=== PATIENT | female | born 1980 | race Asian ===

== ENCOUNTER → 2018-08-15 16:15 | Outpatient (CLI) | payer OTHER, SELFPAY ==
--- NOTE | 2018-08-15 | DI.US.S_ITS ---
PROCEDURE: US OB >= 14 WEEKS FETUS INDICATIONS: SIZE AND DATES OUTSIDE/PRIOR DATING DATA: Last menstrual period (LMP): Unknown. First dating scan (date and location): 08/15/18. Estimated date of delivery (KHANG) from first dating scan: 01/31/19. TECHNIQUE: Real-time scanning was performed of the fetus, with image documentation and biometric measurements. COMPARISON: None. FINDINGS: General: A single living intrauterine gestation is present. Presentation: Breech Placenta: Placental position is anterior. The low placenta edge appears located approximately 1.1 cm from the cervical os suggestive of a low lying placenta. Amniotic fluid index: Early. Amniotic fluid volume appears within normal limits. heart rate: 157 beats per minute. Maternal cervical canal: Not well-seen. biometrics: Biparietal diameter: 3.2 cm, 16 weeks 1 day Head circumference: 12.0 cm, 16 weeks 0 days Abdominal circumference: 9.7 cm, 15 weeks 5 days Femur length: 1.8 cm, 15 weeks 2 days Estimated gestational age from initial scan: not applicable. Composite gestational age from present scan: 15 weeks 6 days Measurement variability for biometric dating: +/- 7 days from 14 weeks to 15 weeks 6 days gestation, +/- 10 days from 16 weeks to 21 weeks 6 days gestation, +/- 2 weeks from 22 weeks to 27 weeks 6 days gestation, +/- 3 weeks for 28 weeks gestation or later. weight reference: 4500 g or EFW >90/95% is considered macrosomia or large for gestational age. EFW <10% is small for gestational age. EFW 5% or less is considered intra-uterine growth restriction. IMPRESSION: 1. Single living intrauterine with composite gestational age of 15 weeks 6 days corresponding to an estimated delivery date of 01/31/19. 2. Low lying placenta noted likely related to early gestational age. Recommend attention on followup studies. Dictated by: Adiel Martinez M.D. on 08/15/2018 at 21:28 Approved by: Adiel Martinez M.D. on 08/15/2018 at 21:33
== END ==
PROVIDERS: PCP Physician Assistant Medical; Visit Provider Family Medicine
DX: Z36.89 Encounter for other specified antenatal screening (principal); Z3A.15 15 weeks gestation of pregnancy
CPT/HCPCS: 76811

== ENCOUNTER → 2018-09-24 14:54 | Outpatient (CLI) | payer OTHER, SELFPAY ==
--- NOTE | 2018-09-24 | DI.US.S_ITS ---
PROCEDURE: US OB >= 14 WEEKS FETUS INDICATIONS: ANATOMY SCAN OUTSIDE/PRIOR DATING DATA: Last menstrual period (LMP): Unknown. First dating scan (date and location): 08/15/18. Estimated date of delivery (KHANG) from first dating scan: 01/31/19. TECHNIQUE: Real-time scanning was performed of the fetus, with image documentation and biometric measurements. Endovaginal scanning: No COMPARISON: [facility], OB >= 14 WEEKS FETUS, 08/15/2018, 16:25. FINDINGS: General: A single living intrauterine gestation is present. Presentation: Breech. Placenta: Placental position is anterior, with prominent venous jameson along the inferior aspect of the placenta which does extend up to the internal cervical os. Amniotic fluid index: 9.9 cm, normal range is 5-24 cm. heart rate: 155 beats per minute. Maternal cervical canal: 4.0 cm long. Normal lower limit is 2.5 cm. biometrics: Biparietal diameter: 21 weeks 3 days Head circumference: 21 weeks 3 days Abdominal circumference: 22 weeks Femur length: 20 weeks 6 days Estimated gestational age from initial scan: 20 weeks 1 day Composite gestational age from present scan: 21 weeks 3 days Estimated weight and percentile: 426 g; 90 percentile Measurement variability for biometric dating: +/- 7 days from 14 weeks to 15 weeks 6 days gestation, +/- 10 days from 16 weeks to 21 weeks 6 days gestation, +/- 2 weeks from 22 weeks to 27 weeks 6 days gestation, +/- 3 weeks for 28 weeks gestation or later. weight reference: 4500 g or EFW >90/95% is considered macrosomia or large for gestational age. EFW <10% is small for gestational age. EFW 5% or less is considered intra-uterine growth restriction. Anatomic survey: Neuro: Ventricles are non-dilated at less than 10 mm. Cisterna magna is normal at 3-11 mm. Cerebellum is normal in size and morphology. Choroid plexus cyst. Nuchal skin fold: Normal at less than 6 mm between 14-21 weeks gestational age. Face: Nose and lips, facial profile are normal. Spine: No evidence for spina bifida. Heart: 4-chambered heart is present, with normal ventricular outflow tracts. Diaphragm: Diaphragm is intact. Stomach: Left-sided stomach is present. Kidneys: No hydronephrosis. Normal is less than 5 mm in 2nd trimester, less than 7 mm in 3rd trimester. Cord: 3-vessel cord has orthotopic insertion. Bladder: Normal in size. Extremities: All 4 extremities identified. IMPRESSION: 1. Single living IUP redemonstrated and interval growth greater than expected. Followup recommended. 2. Prominent venous lakes along the inferior margin of the placenta which extends to the internal cervical os and marginal previa is present. Followup recommended. 3. Small choroid plexus cyst present: in isolation, no association with aneuploidy. Anatomic survey otherwise is normal. Dictated by: Harpreet Pettit [facility] Interpreted: Gamaliel Cordova MD on 09/24/2018 at 16:27 Approved by: Gamaliel Cordova M.D. on 09/24/2018 at 17:18
== END ==
PROVIDERS: PCP Nurse Practitioner; Visit Provider Family Medicine
DX: Z36.89 Encounter for other specified antenatal screening (principal); Z3A.20 20 weeks gestation of pregnancy
CPT/HCPCS: 76811

== ENCOUNTER → 2018-11-19 14:47 | Outpatient (CLI) | payer OTHER, SELFPAY ==
--- NOTE | 2018-11-19 | DI.US.S_ITS ---
PROCEDURE: US OB LIMITED INDICATIONS: COMPLETE PLACENTA PREVIA NOS OR W/O HEMORRAGE OUTSIDE/PRIOR DATING DATA: Last menstrual period (LMP): Unknown. First dating scan (date and location): 08/15/18. Estimated date of delivery (KHANG) from first dating scan: 01/31/19. TECHNIQUE: Real-time scanning was performed of the fetus, with image documentation and biometric measurements. COMPARISON: [facility], OB >= 14 WEEKS FETUS, 08/15/2018, 16:25. [facility], OB >= 14 WEEKS FETUS, 09/24/2018, 15:25. FINDINGS: General: A single living intrauterine gestation is present. Presentation: Transverse with head on maternal right Placenta: Placental position is anterior, without previa. Amniotic fluid index: 19.7 cm, normal range is 5-24 cm. heart rate: 158 beats per minute. Maternal cervical canal: 3.9 cm long. Normal lower limit is 2.5 cm. Estimated gestational age from initial scan: 29 weeks 4 days IMPRESSION: 1. Single living intrauterine redemonstrated. 2. No evidence of placenta previa on the current study. Dictated by: Adiel Martinez M.D. on 11/19/2018 at 16:51 Approved by: Adiel Martinez M.D. on 11/19/2018 at 16:56
== END ==
PROVIDERS: PCP Family Medicine; Visit Provider Family Medicine
DX: O44.02 Complete placenta previa NOS or without hemorrhage, second trimester (principal); Z3A.29 29 weeks gestation of pregnancy
CPT/HCPCS: 76815

== ENCOUNTER 2018-11-27 07:35 | Emergency (ER) | payer OTHER, SELFPAY ==
[2018-11-27 07:44] VITALS: BP 109/62; PULSE 87; RESP 18; TEMP 36.9; O2SAT 98; BMI 28.1
[2018-11-27] MEDS: SODIUM CHLORIDE 0.9% 1,000 ML 1000 ML IV (08:13)
[2018-11-27] MEDS: ACETAMINOPHEN 325 MG TABLET 650 MG PO (08:14)
--- NOTE | 2018-11-27 08:16 | ED_ITS ---
HPI - Dizziness General Chief Complaint: Syncope Stated Complaint: Dizziness Time Seen by Provider: 11/27/18 07:51 Source: patient and family Mode of arrival: ambulatory Limitations: no limitations History of Present Illness HPI Narrative: The patient is brought to the emergency department via EMS after having a near syncopal episode at work today. Patient is 28 weeks . 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 Patient states that she has been having episodes of lightheadedness throughout her , and usually has to sit and the episode passed. The patient's h usband states that the patient was just recently diagnosed with gestational diabetes, and they have been working on getting her sugars down. He states that since they have been working on the sugars, she has not had the lightheaded episodes so much. Patient states that this felt like previous episodes, but was more severe. Patient states that she began to feel dizzy while standing up, and went to sit down in a chair. She states everything went black, but that she could still hear what was going on around her. Patient was still feeling quite dizzy sitting in the chair, so she got down on the floor and laid down. The patient states she never fully lost consciousness. Her boss called EMS, who came and picked her up. Patient states she is feeling quite a bit better now. She was given some oral glucose EN route. She states she has been drinking plenty of fluids. She has a mild headache She denies any dysuria, fevers, vomiting, diarrhea, or other recent illness. She has not been leaking fluid or experiencing vaginal bleeding. The has been going fairly well. Patient has been able to feel the baby moving. Related Data Home Medications Medication Instructions Recorded Confirmed naproxen sodium [Aleve] #0 09/17/17 Previous Rx's Medication Instructions Recorded albuterol sulfate [Ventolin HFA] 2 puff INH QID #1 ea 09/17/17 Allergies Allergy/AdvReac Type Severity Reaction Status Date / Time aspirin Allergy Verified 11/27/18 09:15 ASPIRIN Allergy Unknown Uncoded 11/27/18 09:15 Review of Systems Constitutional Denies chills, Denies fever(s), Reports headache(s), Denies lethargy and Denies weakness Eyes Denies change in vision, Denies eye discharge, Denies irritation and Denies loss of vision ENT Ears, Nose, Mouth, and Throat: Denies change in voice, Reports headache(s), Denies neck pain and Denies sore throat Cardiovascular Denies chest pain, Denies irregular heart rhythm, Reports lightheadedness, Denies palpitations, Denies dyspnea, Denies dyspnea on exertion and Denies ort hopnea Respiratory Denies cough, Denies dyspnea, Denies dyspnea on exertion and Denies wheezing Gastrointestinal Gastrointestinal: Denies abdominal pain, Denies change in bowel habits, Denies diarrhea, Denies nausea and Denies vomiting Genitourinary Denies hematuria, Denies flank pain, Denies urinary incontinence and Denies urinary urgency Musculoskeletal Denies neck pain Integumentary/Breasts Denies pruritus, Denies erythema, Denies rash and Denies wounds Neurologic Denies confusion, Reports headache(s), Denies loss of vision and Denies weakness Psychiatric Denies anxiety, Denies confusion, Denies depression, Denies homicidal ideation and Denies suicidal ideation Endocrine Denies palpitations Hematologic/Lymphatic Denies easy bruising Allergic/Immunologic Denies wheezing [facility] Medical History (Updated 11/27/18 @ 09:43 by Louise Peterson MD) Gestational diabetes (Acute) Social History (System 11/27/18 @ 09:15 by Henrietta Bergman) Smoking Status: Never smoker Social History (System 11/27/18 @ 09:15 by Henrietta Bergman) Smoking Status: Never smoker Exam Initial Vital Signs Initial Vital Signs: Vital Signs Temperature 98.4 F 11/27/18 07:44 Pulse Rate 87 11/27/18 07:44 Respiratory Rate 18 11/27/18 07:44 Blood Pressure 109/62 11/27/18 07:44 Pulse Oximetry 98 11/27/18 07:44 Const General: cooperative and well developed Nutritional Appearance: well nourished Orientation: alert, awake, oriented x3 and not confused [facility] Head: normocephalic and atraumatic Ears: external ears normal Nose: external nose normal and No nasal discharge Face and sinus: face symmetric and No dry mucous membranes Mouth: oral mucosae normal and moist mucous membranes Teeth and gingiva: dentition normal Eyes General: appearance normal, both eyes and all related structures Eyelids: eyelids normal Conjunctivae: conjunctivae normal Sclera: sclerae normal Pupils: PERRL EOM: EOM intact bilaterally Neck Neck: normal visual inspection, trachea midline, No lymphadenopathy, No midline deformity and No JVD Lymphatic: No lymphedema Chest Chest: normal inspection of the chest Resp Effort & Inspection: normal respiratory effort, able to speak in complete sentences, no respiratory distress and no use of accessory muscles Auscultation: clear to auscultation bilaterally, no rales, no rhonchi and no w heezes Cardio Rate: regular rate Rhythm: regular rhythm Heart Sounds: no click, no gallops, no murmurs and no rubs Pulses: normal peripheral pulses GI Palpation: soft, no hepatosplenomegaly, No guarding, No pulsatile mass and No tender Auscultation: normal bowel sounds Other: Patient has a gravid, nontender abdomen, that displays an appropriate degree of distention for gestational age. Back/Spine/Pelvis Back: No CVA tenderness Cervical Spine: cervical ROM normal and No pain with cervical ROM Thoracic/Lumbar Spine: thoracic and lumbar spine normal to inspection Skin General: no rashes or lesions noted, No jaundice and No petechiae Neuro General: alert, oriented x3, gait normal and no focal motor deficits Speech: speech normal Extrem General: full ROM, no clubbing, cyanosis or edema, no pedal edema and no calf te nderness Psych Appearance: well kempt Mental Status: mental status grossly normal Attitude: cooperative Thought Content: normal and suicidality Judgment: judgment good Course Course Narrative: Patient overall was feeling better looked fairly good emergency department. She was given a L of 0.9 normal saline, and a BMP was performed in consideration the patient's gestational diabetes. Blood glucose on BMP was found to be 112. The remainder of the BMP was also unremarkable. Patient was found to be feeling much better, and I felt she was stable for discharge home. She has an appointment with her primary doctor, who is also handling her OB care, tomorrow. will drive her home. I have given her a note for work stating that she needs to sit down to do her work. We have discussed the usual indications for return, as well as symptomatic management at home. Orders Ordered: Discontinued Medications Acetaminophen (Tylenol) 650 mg PO NOW ONE Stop: 11/27/18 08:13 Last Admin: 11/27/18 08:14 Dose: 650 mg Sodium Chloride (Normal Saline 0.9%) 1,000 mls @ 1,000 mls/hr IV BOLUS ONE Stop: 11/27/18 09:11 Last Infusion: 11/27/18 09:05 Dose: 0 mls/hr Admin: 11/27/18 08:13 Dose: 1,000 mls/hr Sodium Chloride (Normal Saline 0.9%) 1,000 mls @ 1,000 mls/hr IV BOLUS ONE Stop: 11/27/18 09:13 Last Admin: 11/27/18 08:17 Dose: Not Given Vital Signs - 8 hr 11/27/18 07:44 Temperature 98.4 F Pulse Rate 87 Respiratory Rate 18 Blood Pressure 109/62 Pulse Oximetry 98 MDM - Dizziness Medical Records Attestation: I reviewed the patient's medical records. Lab Data Attestation: I reviewed the patient's lab results. Result diagrams: 11/27/18 08:30 Lab Results 11/27/18 Range/Units 08:30 Sodium 134 L (137-145) mmol/L Potassium 3.7 (3.4-5.1) mmol/L Chloride 104 (98-107) mmol/L Carbon Dioxide 25 (22-32) mmol/L BUN 8 (7-17) mg/dL Creatinine 0.50 L (0.52-1.04) mg/dL Estimated GFR > 60.0 (>60) mL/min BUN/Creatinine Ratio 16.0 (6-22) Glucose 112 H (70-100) mg/dL Calcium 8.8 (8.4-10.2) mg/dL Point of Care Testing Glucose POC 170 Discharge Plan Departure Patient Disposition: Home Clinical Impression: Postural dizziness with near syncope Discharge Date/Time: 11/27/18 09:51 Interventions: ED Discharge Assessment Last Done: 11/27/18 09:50 Instructions: DI for Syncope in Adults (Fainting) Activity Restrictions/Additional Instructions: Your labs look good. Your blood glucose is just slightly elevated, at 112. Please be sure to drink plenty of fluids and get rest. Follow up with Dr. Demarco tomorrow, as planned. Prescriptions: No Action naproxen sodium [Aleve] 220 MG capsule Qty: 0 RF: 0 albuterol sulfate [Ventolin HFA] 90 MCG/PUFF HFA aerosol inhaler 2 puff INH QID Qty: 1 RF: 0 Stand Alone Forms: Work Release Note
[2018-11-27 08:58] LABS: Blood Urea Nitrogen 8 mg/dL (7-17); Calcium 8.8 mg/dL (8.4-10.2); Carbon Dioxide 25 mmol/L (22-32); Chloride 104 mmol/L (98-107); Estimated Glomerular Filt Rate > 60.0 mL/min (>60); Glucose 112 mg/dL (70-100); HEMOLYSIS < 15 (0-50); Potassium 3.7 mmol/L (3.4-5.1); Sodium 134 mmol/L (137-145)
[2018-11-27 09:50] VITALS: BP 104/63; PULSE 82; RESP 16; O2SAT 100
== END 2018-11-27 09:51 | disposition home or self-care (01) ==
PROVIDERS: Emergency Provider Emergency Medicine; Family Provider Family Medicine
DX: R42 Dizziness and giddiness (principal); R55 Syncope and collapse
CPT/HCPCS: 36415; 80048; 82962; 99283

== ENCOUNTER 2018-12-15 16:14 | Outpatient (CLI) | payer OTHER, SELFPAY | END 2018-12-15 16:55 | disposition home or self-care (01) | LOC: LABOR 16:54 → OB 12-16 15:36 | PROVIDERS: Family Provider Family Medicine; PCP Family Medicine; Visit Provider Family Medicine | DX: O24.419 Gestational diabetes mellitus in pregnancy, unspecified control (principal); Z3A.33 33 weeks gestation of pregnancy | CPT/HCPCS: 59025; G0378; G0379 ==

== ENCOUNTER → 2018-12-19 15:00 | Outpatient (CLI) | payer OTHER, SELFPAY ==
--- NOTE | 2018-12-19 | DI.US.S_ITS ---
PROCEDURE: US OB LIMITED INDICATIONS: SIZE GREATER THAN DATES OUTSIDE/PRIOR DATING DATA: Last menstrual period (LMP): Unknown. LMP-based estimated date of delivery (KHANG): Unknown. First dating scan (date and location): 08/15/18. Estimated date of delivery (KHANG) from first dating scan: 01/31/19. TECHNIQUE: Real-time scanning was performed of the fetus, with image documentation and biometric measurements. Endovaginal scanning: Not performed COMPARISON: [facility], OB LIMITED, 11/19/2018, 15:25 FINDINGS: General: A single living intrauterine gestation is present. Presentation: Vertex Placenta: Placental position is anterior, without previa. Amniotic fluid index: 13.8 cm, normal range is 5-24 cm. heart rate: 144 beats per minute. Maternal cervical canal: Not measured. biometrics: Biparietal diameter: 8.9 cm, 35 week 5 days Head circumference: 31.8 cm, 35 week 5 days Abdominal circumference: 30.6 cm, 34 week 4 days Femur length: 6.5 cm, 33 weeks 4 days Estimated gestational age from initial scan: 33 week 6 days Composite gestational age from present scan: 34 weeks 4 days Estimated weight and percentile: 2453 g, 64% Measurement variability for biometric dating: +/- 7 days from 14 weeks to 15 weeks 6 days gestation, +/- 10 days from 16 weeks to 21 weeks 6 days gestation, +/- 2 weeks from 22 weeks to 27 weeks 6 days gestation, +/- 3 weeks for 28 weeks gestation or later. weight reference: 4500 g or EFW >90/95% is considered macrosomia or large for gestational age. EFW <10% is small for gestational age. EFW 5% or less is considered intra-uterine growth restriction. Other: Not applicable. IMPRESSION: Single live intrauterine . heart rate is 144 beats per minute. Estimated weight is 2453 g, and is at 64%. Dictated by: Gamaliel Cordova M.D. on 12/19/2018 at 16:34 Approved by: Gamaliel Cordova M.D. on 12/19/2018 at 16:38
== END ==
PROVIDERS: Family Provider Family Medicine; PCP Family Medicine; Visit Provider Family Medicine
DX: Z36.88 Encounter for antenatal screening for fetal macrosomia (principal); Z3A.34 34 weeks gestation of pregnancy
CPT/HCPCS: 76815

== ENCOUNTER 2018-12-19 15:53 | Outpatient (CLI) | payer OTHER, SELFPAY | END 2018-12-19 16:30 | disposition home or self-care (01) | LOC: LABOR 15:59 → OB 12-23 14:34 | PROVIDERS: Family Provider Family Medicine; PCP Family Medicine; Visit Provider Family Medicine | DX: O24.419 Gestational diabetes mellitus in pregnancy, unspecified control (principal); Z3A.33 33 weeks gestation of pregnancy | CPT/HCPCS: 59025; 76815; G0378; G0379 ==

== ENCOUNTER 2018-12-22 15:14 | Outpatient (CLI) | payer OTHER, SELFPAY | END 2018-12-22 16:00 | disposition home or self-care (01) | LOC: LABOR 15:43 → OB 12-23 14:36 | PROVIDERS: Family Provider Family Medicine; PCP Family Medicine; Visit Provider Family Medicine | DX: O24.419 Gestational diabetes mellitus in pregnancy, unspecified control (principal); Z3A.34 34 weeks gestation of pregnancy | CPT/HCPCS: 59025; G0378; G0379 ==

== ENCOUNTER 2018-12-25 15:02 | Outpatient (CLI) | payer OTHER, SELFPAY | END 2018-12-25 16:22 | disposition home or self-care (01) | LOC: LABOR 15:37 → OB 12-29 14:53 | PROVIDERS: Family Provider Family Medicine; PCP Family Medicine; Visit Provider Family Medicine | DX: O24.414 Gestational diabetes mellitus in pregnancy, insulin controlled (principal); Z3A.35 35 weeks gestation of pregnancy | CPT/HCPCS: 59025; G0378; G0379 ==

== ENCOUNTER → 2018-12-30 13:12 | Outpatient (ROUT) | payer OTHER, SELFPAY | PROVIDERS: Family Provider Family Medicine; PCP Family Medicine; Visit Provider Family Medicine | DX: Z34.80 Encounter for supervision of other normal pregnancy, unspecified trimester (principal) | CPT/HCPCS: 87081 ==

== ENCOUNTER 2018-12-30 14:56 | Outpatient (CLI) | payer OTHER, SELFPAY | END 2018-12-30 16:25 | disposition home or self-care (01) | LOC: LABOR 15:49 → OB 01-05 16:24 | PROVIDERS: PCP Family Medicine; Visit Provider Family Medicine | DX: O24.913 Unspecified diabetes mellitus in pregnancy, third trimester (principal); Z3A.35 35 weeks gestation of pregnancy | CPT/HCPCS: 59025; 87081; G0378; G0379 ==

== ENCOUNTER 2019-01-01 09:48 | Outpatient (CLI) | payer OTHER, SELFPAY | END 2019-01-01 10:31 | disposition home or self-care (01) | LOC: OB 01-05 16:24 | PROVIDERS: PCP Family Medicine; Visit Provider Family Medicine | DX: O24.419 Gestational diabetes mellitus in pregnancy, unspecified control (principal); Z3A.35 35 weeks gestation of pregnancy | CPT/HCPCS: 59025; G0378; G0379 ==

== ENCOUNTER 2019-01-06 16:00 | Outpatient (CLI) | payer OTHER, SELFPAY | END 2019-01-06 16:29 | disposition home or self-care (01) | LOC: LABOR 16:28 → OB 01-07 12:45 | PROVIDERS: PCP Family Medicine; Visit Provider Family Medicine | DX: O24.419 Gestational diabetes mellitus in pregnancy, unspecified control (principal); Z3A.36 36 weeks gestation of pregnancy | CPT/HCPCS: 59025; G0378; G0379 ==

== ENCOUNTER 2019-01-08 10:04 | Outpatient (CLI) | payer OTHER, SELFPAY | END 2019-01-08 10:32 | disposition home or self-care (01) | LOC: OB 16:51 | PROVIDERS: PCP Family Medicine; Visit Provider Family Medicine | DX: O24.419 Gestational diabetes mellitus in pregnancy, unspecified control (principal); Z3A.36 36 weeks gestation of pregnancy | CPT/HCPCS: 59025; G0378; G0379 ==

== ENCOUNTER 2019-01-13 13:50 | Outpatient (CLI) | payer OTHER, MEDICAID, SELFPAY | END 2019-01-13 15:35 | disposition home or self-care (01) | LOC: LABOR 15:00 → OB 01-14 13:37 | PROVIDERS: PCP Family Medicine; Visit Provider Family Medicine | DX: O24.419 Gestational diabetes mellitus in pregnancy, unspecified control (principal); Z3A.37 37 weeks gestation of pregnancy | CPT/HCPCS: 59025; G0378; G0379 ==

== ENCOUNTER → 2019-01-15 08:04 | Outpatient (CLI) | payer OTHER, MEDICAID, SELFPAY ==
--- NOTE | 2019-01-15 | DI.US.S_ITS ---
PROCEDURE: OB FOLLOW UP INDICATIONS: SIZE GREATER THAN DATES, GESTATIONAL DIABETES OUTSIDE/PRIOR DATING DATA: Last menstrual period (LMP): Unknown. LMP-based estimated date of delivery (KHANG): Unknown. First dating scan (date and location): 08/15/18. Estimated date of delivery (KHANG) from first dating scan: 01/31/19. TECHNIQUE: Real-time scanning was performed of the fetus, with image documentation and biometric measurements. Endovaginal scanning: Not performed COMPARISON: [facility], OB LIMITED, 12/19/2018, 15:29. Located within [facility] OB LIMITED, 11/19/2018, 15:25. Located within [facility] OB >= 14 WEEKS FETUS, 09/24/2018, 15:25. Located within [facility] OB >= 14 WEEKS FETUS, 08/15/2018, 16:25. FINDINGS: General: A single living intrauterine gestation is present. Presentation: Vertex. Placenta: Placental position is anterior, without previa. Amniotic fluid index: 10.5 cm, normal range is 5-24 cm. heart rate: 144 beats per minute. Maternal cervical canal: 3.4 cm long. Normal lower limit is 2.5 cm. biometrics: Biparietal diameter: 9.5 cm, 38 weeks 4 days Head circumference: 34.4 cm, 39 weeks 5 days Abdominal circumference: 36.4 cm, 40 weeks 2 days Femur length: 7.5 cm, 38 weeks 2 days Estimated gestational age from initial scan: 37 weeks 5 days Composite gestational age from present scan: 39 weeks 2 days Estimated weight and percentile: 3832 g, 95th percentile Measurement variability for biometric dating: +/- 7 days from 14 weeks to 15 weeks 6 days gestation, +/- 10 days from 16 weeks to 21 weeks 6 days gestation, +/- 2 weeks from 22 weeks to 27 weeks 6 days gestation, +/- 3 weeks for 28 weeks gestation or later. weight reference: 4500 g or EFW >90/95% is considered macrosomia or large for gestational age. EFW <10% is small for gestational age. EFW 5% or less is considered intra-uterine growth restriction. Other: Not applicable. IMPRESSION: Single living intrauterine fetus in vertex presentation, at the 95th percentile for expected weight as above, suggestive of macrosomia (previously 64th percentile). Normal DEANGELO. Dictated by: Abdoulaye Torres M.D. on 01/15/2019 at 16:47 Approved by: Abdoulaye Torres M.D. on 01/15/2019 at 16:50
== END ==
PROVIDERS: PCP Family Medicine; Visit Provider Family Medicine
DX: O36.63X0 Maternal care for excessive fetal growth, third trimester, not applicable or unspecified (principal); O24.419 Gestational diabetes mellitus in pregnancy, unspecified control; Z3A.39 39 weeks gestation of pregnancy
CPT/HCPCS: 59025; 76816

== ENCOUNTER 2019-01-15 14:37 | Outpatient (CLI) | payer OTHER, MEDICAID, SELFPAY ==
--- NOTE | 2019-01-15 15:28 | PM.OBTRLD ---
Visit Information Visit Information Date of evaluation: 01/15/19 Primary OB Provider: Adali Demarco On-call OB Provider: Kriss Krishnamurthy Reason for Evaluation: Yes non-stress test non-stress test reason: diabetes [facility] Medical History (Updated 12/12/18 @ 00:00 by ) Gestational diabetes (Acute) Social History (System 11/27/18 @ 09:15 by Henrietta Bergman) Smoking Status: Never smoker Social History (System 11/27/18 @ 09:15 by Henrietta Bergman) Smoking Status: Never smoker Exam Vital Signs (past 8 hours): Blood pressure 104/58, temperature of 36.4?, pulse of 85 Evaluation Evaluation Baseline heart rate: 130 Variability: Moderate (11-25) monitor accelerations: Present monitor decelerations: Absent Diagnosis, Plan/Disposition Final Diagnosis (1) Gestational diabetes: Current Visit: No Status: Acute Plan/Disposition Plan: Reactive nonstress tests continue to follow up with OB provider OB Disposition: home
== END 2019-01-15 15:28 | disposition home or self-care (01) ==
LOC: LABOR 14:54 → OB 16:41
PROVIDERS: PCP Family Medicine; Visit Provider Family Medicine
DX: O24.419 Gestational diabetes mellitus in pregnancy, unspecified control (principal)
CPT/HCPCS: 59025; G0378; G0379

== ENCOUNTER 2019-01-20 14:01 | Outpatient (CLI) | payer OTHER, MEDICAID, SELFPAY | END 2019-01-20 14:45 | disposition home or self-care (01) | LOC: LABOR 14:31 → OB 01-21 15:53 | PROVIDERS: PCP Family Medicine; Visit Provider Family Medicine | DX: O24.419 Gestational diabetes mellitus in pregnancy, unspecified control (principal); Z3A.38 38 weeks gestation of pregnancy | CPT/HCPCS: 59025; G0378; G0379 ==

== ENCOUNTER 2019-01-22 16:04 | Outpatient (CLI) | payer OTHER, MEDICAID, SELFPAY | END 2019-01-22 16:45 | disposition home or self-care (01) | LOC: LABOR 16:40 → OB 01-27 10:25 | PROVIDERS: PCP Family Medicine; Visit Provider Family Medicine | DX: O24.419 Gestational diabetes mellitus in pregnancy, unspecified control (principal); Z3A.38 38 weeks gestation of pregnancy | CPT/HCPCS: 59025; G0378; G0379 ==

== ENCOUNTER 2019-01-26 06:31 | Inpatient (IN) | payer OTHER, MEDICAID, SELFPAY ==
[2019-01-26] VITALS (15 sets, daily range): BP systolic 76–112; BP diastolic 54–69; PULSE 62–93; RESP 8–17; TEMP 36.2–37.2; O2SAT 94–99
--- NOTE | 2019-01-26 | PATH_ITS ---
[facility] Accession Number: [id number] . 01 Material submitted: . fallopian tube - SEGMENTS OF BILATERAL FALLOPIAN TUBES . 01 Clinical history: . , TUBAL LIGATION . 02 Diagnosis: Segments of Bilateral Fallopian Tubes, Bilateral Tubal Ligation: Two segments of fallopian tube. No evidence of malignancy. MRV/01/28/2019 . 02 Electronically signed: . Armin Champion MD, PhD, Pathologist NPI- [id number] . 01 Gross description: . Received one formalin-filled container labeled with the patient's name and labeled segments of bilateral fallopian tubes. The specimen consists of two coffey-robin, cylindrical-shaped portions of tissue. The first measures 0.8 x 0.5 x 0.5 cm. The specimen is inked blue, bisected, and entirely submitted in cassette A1. The second piece measures 0.8 x 0.5 x 0.5 cm. The specimen is inked blue, bisected, and entirely submitted in cassette A2. ([id number]) /FRR . 02 Microscopic: . Complete cross-sections of fallopian tube are seen from each of the two tissue segments received. . 02 Pathologist provided ICD-10: Z30.2 . 02 CPT . 211737 Performed at: 01 [facility] [address], [place], [place] [id number] MD Adiel Lynn MD Phone: [phone] Performed at: 02 [facility] [place] [address] [place], [place] [id number] MD Delfina Hernandez MD Phone: [phone]
[2019-01-26] MEDS: LACTATED RINGERS 1,000 ML 100 ML IV ×2 (07:30→15:50)
--- NOTE | 2019-01-26 07:55 | PM.OBHP.1 ---
OB HPI Date/Time Date of admission: 01/26/19 Date Patient Seen: 01/26/19 Time Patient Seen: 07:55 History of Present Condition Chief complaint: ,Tubal Ligation : 2 Para: 1 Estimated Date of Delivery: 01/30/19 Estimated Gestational Age (weeks): Thirty Narrative: Kathy Pierre is a 38 year old female with EDC of 8 January 31, 2019 placing her at 39+ weeks gestational age. With patient has history of greater than 4500 g and gestational diabetes with previous labor and 2 lb patient requesting section and permanent sterilization. has been complicated by gestational diabetes and LGA . No other issue or problem and STs have been excellent sugars have been well controlled with hemoglobin oral metformin. No other changes. Past gestational history 07/05/1998 at home 2 lb female Past medical history is negative. Past surgical history negative. Indications Operative indications ( section): elective Other reason(s) for admission: Patient admitted for section for LGA and gestational diabetes History of Present care: good care Dating criteria: LMP confirmed by 1st trimester US Ultrasounds: normal mid trimester US Obstetrical complications: gestational diabetes Preadmission Labs Blood type: O (+) positive -: Antibody screen: negative, GBS status: negative, HBsAG: negative, HIV: negative, HSV 1: negative, HSV 2: negative and RPR/VDLR: negative -: Chlamydia screen: not detected and Gonorrhea screen: not detected -: Rubella: immune HCT: 31 HCAB: negative PAP: Normal Quad screen: Normal Narrative: Abnormal 1 hour glucose test. [facility] Medical History (Updated 12/12/18 @ 00:00 by ) Gestational diabetes (Acute) Social History (System 11/27/18 @ 09:15 by HenriettaJongla) Smoking Status: Never smoker Social History (System 11/27/18 @ 09:15 by HenriettaJongla) Smoking Status: Never smoker Meds Allergies Allergy/AdvReac Type Severity Reaction Status Date / Time aspirin Allergy Verified 11/27/18 09:15 ASPIRIN Allergy Unknown Uncoded 11/27/18 09:15 Review of Systems Review of Systems All systems reviewed & are unremarkable except as noted in HPI and below Exam Vital Signs (past 8 hours): Alert female no acute distress Lungs are clear. Heart regular rate and rhythm. Abdomen is vertex 9+ lb infant estimated weight. Extremities without cyanosis clubbing edema. Neurologic exam normal reflexes Assessment and Plan Assessment and Plan Assessment and Plan narrative: Thirty-nine 2. Intrauterine term with history of gestational diabetes and macrosomic infant desire for sterilization here for elective section. We have added long discussion with Dr. Demarco and her and myself this morning about the section she is requesting that due to large . Will check sugar this morning. Otherwise routine preparation for section. Questions answered. Consents min sign.
--- NOTE | 2019-01-26 08:01 | P.HPOB_ITS ---
OB HPI Date/Time Date of admission: 01/26/19 Date Patient Seen: 01/26/19 Time Patient Seen: 07:55 History of Present Condition Chief complaint: ,Tubal Ligation : 2 Para: 1 Estimated Date of Delivery: 01/30/19 Estimated Gestational Age (weeks): Thirty Narrative: Kathy Pierre is a 38 year old female with EDC of 8 January 31, 2019 placing her at 39+ weeks gestational age. With patient has history of greater than 4500 g and gestational diabetes with previous labor and 2 lb patient requesting section and permanent sterilization. has been complicated by gestational diabetes and LGA . No other issue or problem and STs have been excellent sugars have been well controlled with hemoglobin oral metformin. No other changes. Past gestational history 07/05/1998 at home 2 lb female Past medical history is negative. Past surgical history negative. Indications Operative indications ( section): elective Other reason(s) for admission: Patient admitted for section for LGA and gestational diabetes History of Present care: good care Dating criteria: LMP confirmed by 1st trimester US Ultrasounds: normal mid trimester US Obstetrical complications: gestational diabetes Preadmission Labs Blood type: O (+) positive -: Antibody screen: negative, GBS status: negative, HBsAG: negative, HIV: negative, HSV 1: negative, HSV 2: negative and RPR/VDLR: negative -: Chlamydia screen: not detected and Gonorrhea screen: not detected -: Rubella: immune HCT: 31 HCAB: negative PAP: Normal Quad screen: Normal Narrative: Abnormal 1 hour glucose test. [facility] Medical History (Updated 12/12/18 @ 00:00 by ) Gestational diabetes (Acute) Social History (System 11/27/18 @ 09:15 by HenriettaClew) Smoking Status: Never smoker Social History (System 11/27/18 @ 09:15 by HenriettaClew) Smoking Status: Never smoker Meds Allergies Allergy/AdvReac Type Severity Reaction Status Date / Time aspirin Allergy Verified 11/27/18 09:15 ASPIRIN Allergy Unknown Uncoded 11/27/18 09:15 Review of Systems Review of Systems All systems reviewed & are unremarkable except as noted in HPI and below Exam Vital Signs (past 8 hours): Alert female no acute distress Lungs are clear. Heart regular rate and rhythm. Abdomen is vertex 9+ lb infant estimated weight. Extremities without cyanosis clubbing edema. Neurologic exam normal reflexes Assessment and Plan Assessment and Plan Assessment and Plan narrative: Thirty-nine 2. Intrauterine term with history of gestational diabetes and macrosomic infant desire for sterilization here for elective section. We have added long discussion with Dr. Demarco and her and myself this morning about the section she is requesting that due to large . Will check sugar this morning. Otherwise routine preparation for section. Questions answered. Consents min sign.
[2019-01-26 08:16] LABS: Add Manual Diff / Slide Review NO; Basophils Absolute Auto 0 /uL (0-100); Basophils Percent Auto 0.4 % (0-2); Eosinophils Absolute Auto 200 /uL (0-450); Eosinophils Percent Auto 2.5 % (2-4); Lymphocytes Absolute Auto 1500 /uL (1100-4500); Lymphocytes Percent Auto 18.2 % (25-40); Mean Corpuscular HGB Conc 34.3 % (30-36); Mean Corpuscular Hemoglobin 29.2 PG (26-34); Mean Corpuscular Volume 85.2 fL (80-100); Monocytes Absolute Auto 600 /uL (0-900); Monocytes Percent Auto 7.4 % (3-14); Neutrophils Absolute Auto 5700 /uL (1500-7000); Neutrophils Percent Auto 71.5 % (50-75); Platelet Count 202 X10^3/uL (150-400); Red Blood Cell Count 4.11 X10^6/uL (4.0-5.2)
[2019-01-26] MEDS: CEFOTETAN 2 GM/50 ML PIGGYBACK IV (09:39)
[2019-01-26] MEDS: LACTATED RINGERS 1,000 ML 42 ML IV (09:50)
[2019-01-26] MEDS: ACETAMINOPHEN IV 1,000 MG/100 ML VIAL 400 MG IV (09:50)
[2019-01-26] MEDS: SODIUM CHLORIDE 0.9% 500 ML 21 ML IV (10:00)
--- NOTE | 2019-01-26 10:00 | SUR.OPER ---
Supine on Padded OR bed, head on pillow, safety belt at thigh, arms secured on padded arm boards at <90 degrees abduction. Bump under right buttock. Legs uncrossed with pillow under knees, gel pad to heels, tape over blanket to lower legs.
--- NOTE | 2019-01-26 10:21 | SUR.OPER ---
FHT's 144 TOB at 09:57 alive baby girl Blood cord x 2 and placenta are given to OB nurse
[2019-01-26] MEDS: HYDROMORPHONE 2 MG INJ 0.5 MG IV ×6 (11:17→12:21)
--- NOTE | 2019-01-26 11:54 | SUR.PHASEI ---
Pt reported 7/10 pain. Denied nausea.
--- NOTE | 2019-01-26 12:14 | SUR.PHASEI ---
Dr. Montano notified patient's pain level still 01/07. No new orders, ok to continue giving Dilaudid per MD.
--- NOTE | 2019-01-26 12:28 | SUR.PHASEI ---
Pt lying calmly in bed, dozing. No facial grimace noted. d
--- NOTE | 2019-01-26 12:54 | SUR.PHASEI ---
Report called to Shireen.
--- NOTE | 2019-01-26 13:10 | SUR.PHASEI ---
Report called to Shireen. Pt reported 6/10 abd pain. VS stable with occasional desat to 89% on RA. Sats increased to low to mid 90s independently. Taken to the center by
--- NOTE | 2019-01-26 13:36 | P.OP_ITS ---
Operative Date/Time/Diagnoses Date of procedure: 01/26/19 Time of procedure: 08:45 Pre-op diagnosis: Term intrauterine 39 and 2 7 weeks, LGA, gestational diabetes, desired sterilization Post-op diagnosis: same Procedure & Clinicians Same procedure as scheduled: Yes Indications: 4500+ LGA infant, gestational diabetes, elective Surgeon: Dylan Kaba Training And Development Officer: Adali Demarco Click Yes if Unassisted: No Anesthesia Type: General Operative Notes Findings: Viable female , normal pelvic organs, moderate bleeding Apgars 8 and 9, weight 8.3 lb Closure Type: primary Specimen(s): other Applied: catheter Estimated Blood Loss (mL): 500 Blood products transfused: none Procedure in detail: Patient was taken to the operative theater after consent was rediscussed. She desired sterilization. Did want to have section. She was taken to the operative theater and sat on the operating table. Several attempts were made at a spinal including ultrasound and lying on her side none of which were effective. Eventually prepped and draped in the usual manner Cortes was placed and general anesthesia was undertaken by anesthesia. Pfannenstiel incision was made through the subcutaneous tissue to the fascia. The fascia was then scored in the midline and extended laterally with the scalpel. Blunt dissection was used to elevate the scalpel after Coke course were applied. This was not repeated inferior without complications. The midline was then entered with blunt dissection in it until the peritoneum was identified. The peritoneum was bluntly entered without complications. An extended. Bladder blade was then placed. Bladder flap was then incised and developed. Bladder blade was placed into the bladder flap. A low transverse incision was then scored on the uterus and then taken until amniotic fluid which was clear was noted. It was extended bluntly. The child was then delivered vertex without complications. Smoked 1 nuchal cord was reduced on delivery of the head. Child required no resuscitation. It was noted mom is bleeding pretty extensively from interior of the uterus. Hemabate was given and uterus lining was packed without complications. This was then removed and appeared to have good hemostasis. Incision was then closed with running 0 locked Vicryl. An imbricating stitch was then done with excellent hemostasis except in the midline. Two [id number] 0 chromic his sutures were used with excellent results. Irrigation was then done. Re-evaluated wound was dry. Left tube was then grasped with [place] ox and identified. A loop was then created with 0 catgut. The mesial pharynx was then pierced and 3 0 silk was then used at both proximal and distal end in the usual manner. The intervening loop was then removed. No bleeding was noted. This was repeated without complication on the right side. Re-evaluated incision and found to be dry. Peritoneum was closed with running 2 Vicryl. Approximated the muscle layer with 08/02/1999 interrupted sutures. Fascia was then closed with running 1 Vicryl. Irrigation was done and subcutaneous sutures were then used 3 0 to approximate the wound edge. Was then closed with running 4 0 Vicryl. Steri-Strips and dressing were applied. EBL 500 cc. Mother and infant were in stable condition. Complications: none Condition: stable Disposition: Acute Care Plan for aftercare: Routine care. Transfer to L&D 1 stable
[2019-01-26] MEDS: KETOROLAC 30 MG/ML VIAL IV (17:09)
[2019-01-26] MEDS: OXYCODONE/ACETAMINOPHEN 5/325 TABLET 1 TAB PO ×2 (17:15→21:30)
[2019-01-26] MEDS: SODIUM CHLORIDE 0.9% 1,000 ML 125 ML IV (21:31)
[2019-01-27] MEDS: OXYCODONE/ACETAMINOPHEN 5/325 TABLET 1 TAB PO ×5 (02:49→19:49)
[2019-01-27] MEDS: KETOROLAC 30 MG/ML VIAL IV ×2 (02:49→08:26)
--- NOTE | 2019-01-27 08:26 | PM.PN.1 ---
Subjective Date Patient Seen: 01/27/19 Time Patient Seen: 08:26 Interval history: Patient is seen in follow-up for stay postop. Feeling better today. Pain is more controlled. Bleeding is minimal. No nausea or vomiting. Has got up to chair and did well. Still has Cortes. No other significant change. No chest pain shortness of breath breast-feeding seems to be going well. Exam Vital Signs (past 8 hours): Oxygen Delivery Method Room Air Narrative Exam Narrative: Alert smiling female much less fatigued in no acute distress. Lungs are clear. Heart regular rate and rhythm. Abdomen incision is clean and dry. She is mildly distended. She does have bowel sounds. Uterus is firm but tender. Extremities without cyanosis clubbing edema. Objective Labs Result Diagrams: 01/26/19 07:55 Labs: Laboratory Results - last 24 hr 01/26/19 07:55 Blood Type O Positive Antibody Screen Negative Assessment & Plan Assessment & Plan narrative: Postop day 1. Doing well. Routine care. Will follow up H&H. Patient did had moderate bleeding will make sure we do not need iron replacement. Otherwise pain seems much better controlled and will follow.
[2019-01-27] MEDS: DOCUSATE 250 MG CAPSULE PO (08:30)
[2019-01-27 11:40] LABS: Add Manual Diff / Slide Review NO; Basophils Absolute Auto 0 /uL (0-100); Basophils Percent Auto 0.2 % (0-2); Eosinophils Absolute Auto 0 /uL (0-450); Eosinophils Percent Auto 0.4 % (2-4); Lymphocytes Absolute Auto 1000 /uL (1100-4500); Lymphocytes Percent Auto 8.8 % (25-40); Mean Corpuscular HGB Conc 33.1 % (30-36); Mean Corpuscular Hemoglobin 28.9 PG (26-34); Mean Corpuscular Volume 87.1 fL (80-100); Monocytes Absolute Auto 700 /uL (0-900); Monocytes Percent Auto 5.9 % (3-14); Neutrophils Absolute Auto 10000 /uL (1500-7000); Neutrophils Percent Auto 84.7 % (50-75); Platelet Count 158 X10^3/uL (150-400); Red Blood Cell Count 2.31 X10^6/uL (4.0-5.2); White Blood Cell Count 11.8 X10^3/uL (4.5-11.0)
[2019-01-27 11:46] LABS: Hemoglobin 6.7 g/dL (12.0-16.0)
[2019-01-27 11:47] LABS: Hematocrit 20.1 % (36-46)
[2019-01-27] MEDS: FERROUS GLUCONATE 324 MG TABLET PO (22:59)
[2019-01-28] MEDS: OXYCODONE/ACETAMINOPHEN 5/325 TABLET 1 TAB PO (01:33)
[2019-01-28] MEDS: IBUPROFEN 600 MG TABLET PO ×2 (06:06→11:59)
[2019-01-28] MEDS: OXYCODONE/ACETAMINOPHEN 5/325 TABLET 2 TAB PO ×3 (06:07→13:56)
[2019-01-28 07:01] LABS: Hemoglobin 6.7 g/dL (12.0-16.0)
[2019-01-28 07:02] LABS: Hematocrit 20.1 % (36-46)
--- NOTE | 2019-01-28 08:43 | P.DS_ITS ---
History of Present Illness Chief complaint: ,Tubal Ligation Discharge Providers Date of admission: 01/26/19 06:31 Discharge Date: 01/28/19 Primary care physician: Adali Demarco MD Consults: 01/26/19 12:53 Consult to First Assist Routine Comment: Discharge provider: Dylan Kaba MD Summary Discharge Diagnosis: Gestational diabetes 392/7 week intrauterine LGA Desired sterilization Hospital Course: Patient was brought back from recovery room after primary low transverse section and bilateral tubal ligation. During the course of her operation she had significant bleeding from atony which required packing and Hemabate. Patient did well after that. No other complications. She was transferred to the floor. Pain control initially was difficult to general anesthesia and lack of Duramorph. Eventually she did well with IV morphine through the next 12 hours and then slowly started to get better. She was not nauseated. She was transferred to oral medicines which worked well she was started on oral iron. Her hematocrit had dropped to 20. With starting at 37. Her bleeding was minimal after that. She was not dizzy or lightheaded. No fevers or chills develop. Breast-feeding was going well. On day 1 postop she had Cortes discontinued was not up ambulating and doing well. No other significant change. On day 2 she was requesting discharge from the hospital. Feeling pretty well. [place] like she could do everything she needed to do at [facility]. Has good family support. No further bleeding. No dizziness. No lightheadedness. Pain control was good. She was discharged to home Status at Discharge Cognitive/behavioral status at discharge: oriented Functional status at discharge: independent ambulation Overall status at discharge: patient is progressing back to baseline Time Spent with Patient Greater than 30 minutes Exam Vital Signs (past 8 hours): Oxygen Delivery Method Room Air Objective Labs Result Diagrams: 01/28/19 06:36 Labs: Laboratory Results - last 24 hr 01/27/19 01/28/19 11:25 06:36 WBC 11.8 H RBC 2.31 L Hgb 6.7 L* 6.7 L* Hct 20.1 L* 20.1 L* MCV 87.1 MCH 28.9 MCHC 33.1 RDW 15.0 H Plt Count 158 Neut % (Auto) 84.7 H Lymph % (Auto) 8.8 L Spink % (Auto) 5.9 Eos % (Auto) 0.4 L Baso % (Auto) 0.2 Neut # (Auto) 36661 H Lymph # (Auto) 1000 L Spink # (Auto) 700 Eos # (Auto) 0 Baso # (Auto) 0 Discharge Plan Discharge Plan Patient Disposition: Home Discharge Med Rec/Prescriptions Prescriptions: New oxycodone-acetaminophen 5-325 mg Tablet 2 tab PO Q4HR PRN (Reason: Pain, Severe (7-10)) Qty: 42 RF: 0 ibuprofen 600 mg Tablet 600 mg PO Q6HR PRN (Reason: As Needed For Fever/Mild Pain) Qty: 90 RF: 0 docusate sodium 250 mg Capsule 250 mg PO DAILY Qty: 60 RF: 1 ferrous gluconate 324 mg (38 mg iron) Tablet 324 mg PO BID Qty: 100 RF: 1 Follow up/Referrals: Dylan Kaba MD [Physician] - 2 Weeks (please call for appointment) Adali Demarco MD [Primary Care Provider] - Provider Discharge Instructions Diet: Diet as Tolerated Activity: no lifting greater than 15 pounds no abdomen exersises.. okay to walk Skin/Wound/Dressing Care Report to your healthcare provider any signs of infection, such as:: chills, fever, night sweats, increased pain and unusual redness Other wound treatment: keep incision dry Discharge Data Primary Care Provider: Adali Demarco Attending Provider: Dylan Kaba Admit Date/Time: 01/26/19 06:31
[2019-01-28 09:55] VITALS: BP 97/58; PULSE 96; RESP 16; TEMP 36.9
[2019-01-28] MEDS: FERROUS GLUCONATE 324 MG TABLET PO (10:06)
[2019-01-28] MEDS: DOCUSATE 250 MG CAPSULE PO (10:06)
== END 2019-01-28 13:30 | disposition home or self-care (01) | DRG 785 ==
PROVIDERS: Admitting Provider Family Medicine; PCP Family Medicine; Visit Provider Family Medicine
PROC: (CPT 59514; principal; 2019-01-26 08:45)
DX: O24.429 Gestational diabetes mellitus in childbirth, unspecified control (principal); Z3A.39 39 weeks gestation of pregnancy; Z37.0 Single live birth; Z30.2 Encounter for sterilization; P08.1 Other heavy for gestational age newborn
CPT/HCPCS: 36415; 59050; 85014; 85018; 85025; 86850; 86900; 86901; J0131; J0330; J1100; J1170; J1885; J2405; J2590; J2704; J3010

== ENCOUNTER → 2020-08-05 17:15 | Outpatient (CLI) | payer OTHER, MEDICAID, SELFPAY ==
--- NOTE | 2020-08-05 17:20 | DI.MG.S_ITS ---
BILATERAL DIGITAL SCREENING MAMMOGRAM 3D/2D WITH CAD: 08/05/2020 CLINICAL: Routine screening. Baseline exam. No prior exams were available for comparison. The tissue of both breasts is heterogeneously dense. This may lower the sensitivity of mammography. Current study was also evaluated with a Computer Aided Detection (CAD) system. No significant masses, calcifications, or other findings are seen in either breast. IMPRESSION: NEGATIVE There is no mammographic evidence of malignancy. A 1 year screening mammogram is recommended. This exam was interpreted at Station ID: [id number]. NOTE: For mammograms, a report in lay terms will be sent to the patient. Approximately 15% of breast malignancies will not be visualized mammographically. In the management of a palpable breast mass, a negative mammogram must not discourage biopsy of a clinically suspicious lesion. Electronically Signed By: Eugenio fontenot/margo:08/08/2020 07:21:48 letter sent: Normal Exam ACR BI-RADS Category 1: Negative 3341F
== END ==
PROVIDERS: PCP Family Medicine; Referring Provider Family Medicine; Visit Provider Family Medicine
DX: Z12.31 Encounter for screening mammogram for malignant neoplasm of breast (principal)
CPT/HCPCS: 77063; 77067

== ENCOUNTER → 2021-09-08 12:33 | Outpatient (CLI) | payer OTHER, MEDICAID, SELFPAY ==
--- NOTE | 2021-09-08 | DI.RAD.S_ITS ---
PROCEDURE: FL UPPER GI W AIR INDICATIONS: Dysphagia, unspecified COMPARISON: None. FINDINGS: KUB: Preprocedural customer solutions specialist film demonstrates a normal bowel gas pattern. No suspicious abdominal calcifications. Visualized solid organ contours appear normal. Bony structures appear unremarkable. Esophagus: Esophageal mucosa is normal on air-contrast views. On single-contrast views, there is normal esophageal peristalsis. No strictures, extrinsic mass effects, or diverticula. No hiatal hernia or elicited gastroesophageal reflux. There is normal transit of a calibrated barium tablet through the esophagus. Stomach: The stomach is normally distensible, with normal rugal fold thickness. No mucosal masses or ulcers. Pylorus and duodenal bulb appear normal in morphology. Duodenal folds are normal in thickness as well. IMPRESSION: Normal examination. Dictated by: Fabby Golden MD, PhD on 09/08/2021 at 14:53 Approved by: Fabby Golden MD, PhD on 09/08/2021 at 14:55
== END ==
PROVIDERS: PCP Family Medicine; Referring Provider Family Medicine; Visit Provider Family Medicine
DX: R13.10 Dysphagia, unspecified (principal)
CPT/HCPCS: 74246

== ENCOUNTER → 2022-03-27 09:58 | Outpatient (CLI) | payer OTHER, SELFPAY ==
--- NOTE | 2022-03-27 | DI.RAD.S_ITS ---
PROCEDURE: XR HAND LT MIN 3V INDICATIONS: BILATERAL HAND HELLER TECHNIQUE: 3 views of the hand(s) acquired. COMPARISON: None. FINDINGS: Bones: No fractures or dislocations. Carpal bones are normally aligned. Subtle radiolucencies are noted involving radial aspect of 2nd PIP joint. No suspicious bony lesion. Soft tissues: No suspicious soft tissue calcifications. IMPRESSION: Possible subtle erosion involving radial aspect of 2nd PIP joint which could represent changes related to inflammatory arthropathy. No other area of bony erosion is seen. Dictated by: Gamaliel Cordova M.D. on 03/27/2022 at 13:10 Approved by: Gamaliel Cordova M.D. on 03/27/2022 at 13:12
--- NOTE | 2022-03-27 | DI.RAD.S_ITS ---
PROCEDURE: XR HAND RT MIN 3V INDICATIONS: BILATERAL HAND PAIN TECHNIQUE: 3 views of the hand(s) acquired. COMPARISON: [facility], CR, XR HAND LT MIN 3V, 03/27/2022, 10:10. FINDINGS: Bones: No fractures or dislocations. Carpal bones are normally aligned. Joint spaces are fairly well preserved. No gross bony erosive changes are seen. No suspicious bony lesions. Soft tissues: No suspicious soft tissue calcifications. IMPRESSION: No evidence of bony erosive changes seen in right hand. Joint spaces are fairly well preserved. No fracture or dislocation. Dictated by: Gamaliel Cordova M.D. on 03/27/2022 at 13:12 Approved by: Gamaliel Cordova M.D. on 03/27/2022 at 13:24
== END ==
PROVIDERS: Family Provider Family Medicine; PCP Family Medicine; Referring Provider Orthopaedic Surgery; Visit Provider Orthopaedic Surgery
DX: M79.641 Pain in right hand (principal); M79.642 Pain in left hand
CPT/HCPCS: 73130

== ENCOUNTER → 2022-04-05 12:42 | Outpatient (CLI) | payer OTHER, SELFPAY | PROVIDERS: Family Provider Family Medicine; PCP Family Medicine; Referring Provider Family Medicine; Visit Provider Family Medicine | DX: G56.02 Carpal tunnel syndrome, left upper limb (principal); G56.01 Carpal tunnel syndrome, right upper limb; R20.2 Paresthesia of skin | CPT/HCPCS: 95885; 95886; 95910 ==

== ENCOUNTER → 2022-06-29 13:01 | Outpatient (CLI) | payer OTHER, SELFPAY ==
--- NOTE | 2022-06-29 | DI.MG.S_ITS ---
BILATERAL DIGITAL SCREENING MAMMOGRAM 3D/2D WITH CAD: 06/29/2022 CLINICAL: Routine screening. Family history of breast cancer. Comparison is made to exam dated: 08/05/2020 mammogram - [facility]. Both breasts are heterogeneously dense, which may obscure small masses (category c / 51-75% glandular tissue). Current study was also evaluated with a Computer Aided Detection (CAD) system. No significant masses, calcifications, or other findings are seen in either breast. There has been no significant interval change. IMPRESSION: NEGATIVE There is no mammographic evidence of malignancy. A 1 year screening mammogram is recommended. Based on the Tyrer Cuzick model (a risk assessment model) the patient's lifetime risk is 7.7% and her 10 year risk is 1.3%. According to the ACR, ACS, and NCCN guidelines, an annual breast MRI exam along with mammogram is recommended if the patient's lifetime risk is 20% or greater. This exam was interpreted at Station ID: [id number]. NOTE: For mammograms, a report in lay terms will be sent to the patient. Approximately 15% of breast malignancies will not be visualized mammographically. In the management of a palpable breast mass, a negative mammogram must not discourage biopsy of a clinically suspicious lesion. Electronically Signed By: Bree luque/margo:06/29/2022 16:12:44 letter sent: Normal Exam ACR BI-RADS Category 1: Negative [id number]
== END ==
PROVIDERS: Family Provider Family Medicine; PCP Family Medicine; Referring Provider Family Medicine; Visit Provider Family Medicine
DX: Z12.31 Encounter for screening mammogram for malignant neoplasm of breast (principal); Z80.3 Family history of malignant neoplasm of breast
CPT/HCPCS: 77063; 77067

== ENCOUNTER 2022-12-18 18:18 | Emergency (ER) | payer OTHER, MEDICAID, SELFPAY ==
[2022-12-18 18:32] VITALS: BP 110/60; PULSE 79; RESP 20; TEMP 36.8; O2SAT 98; BMI 22.3
[2022-12-18 19:37] LABS: Add Manual Diff / Slide Review NO; Basophils Absolute Auto 0 /uL (0-100); Basophils Percent Auto 0.6 % (0-2); Eosinophils Absolute Auto 100 /uL (0-450); Eosinophils Percent Auto 4.3 % (2-4); Hematocrit 39.4 % (36-46); Hemoglobin 13.1 g/dL (12.0-16.0); Lymphocytes Absolute Auto 700 /uL (1100-4500); Lymphocytes Percent Auto 28.9 % (25-40); Mean Corpuscular HGB Conc 33.3 % (30-36); Mean Corpuscular Hemoglobin 29.4 PG (26-34); Mean Corpuscular Volume 88.3 fL (80-100); Monocytes Absolute Auto 300 /uL (0-900); Monocytes Percent Auto 13.5 % (3-14); Neutrophils Absolute Auto 1300 /uL (1500-7000); Neutrophils Percent Auto 52.7 % (50-75); Platelet Count 194 X10^3/uL (150-400); Red Blood Cell Count 4.46 X10^6/uL (4.0-5.2); White Blood Cell Count 2.4 X10^3/uL (4.5-11.0)
[2022-12-18] MEDS: ONDANSETRON 4 MG/2 ML INJ IV (19:37)
[2022-12-18] MEDS: SODIUM CHLORIDE 0.9% 1,000 ML 1000 ML IV (19:37)
[2022-12-18 19:41] LABS: Alanine Aminotransferase 26 IU/L (<35); Albumin 3.9 g/dL (3.5-5.0); Albumin Globulin Ratio 1.3 (1.0-2.8); Alkaline Phosphatase 27 U/L (38-126); Aspartate Aminotransferase 36 IU/L (14-36); BUN Creatinine Ratio 24.4 (6-22); Bilirubin Total 0.3 mg/dL (0.2-1.3); Blood Urea Nitrogen 11 mg/dL (7-17); Calcium 7.9 mg/dL (8.4-10.2); Carbon Dioxide 25 mmol/L (22-32); Chloride 104 mmol/L (98-107); Estimated Glomerular Filt Rate > 60 mL/min (>60); Globulin 3.1 g/dL (1.7-4.1); Glucose 112 mg/dL (70-100); Sodium 136 mmol/L (137-145)
[2022-12-18 19:46] LABS: COVID19 -Nasal RAPID Negative (Negative)
[2022-12-18 19:55] LABS: HEMOLYSIS 112 (0-50); Potassium 4.8 mmol/L (3.4-5.1)
--- NOTE | 2022-12-18 21:51 | ED.GENADULT ---
HPI - General Adult General Chief complaint: Dizziness Stated complaint: Body aches, dizzy, nausea, headache Time Seen by Provider: 12/18/22 19:23 Source: family Mode of arrival: Ambulatory History of Present Illness HPI narrative: Patient is a 42-year-old female. She recently completed a course of Keflex after having a right-sided carpal tunnel release. She states that since she completed the course of antibiotics she has had body aches, nausea, abdominal discomfort and headache and dizziness. She denies chest pain. No fevers. No urinary symptoms. Has had some loose stool. No chest pain or shortness of breath. Related Data Previous Rx's Medication Instructions Recorded docusate sodium 250 mg capsule 250 mg PO DAILY #60 caps 01/28/19 ferrous gluconate 324 mg (38 mg 324 mg PO BID #100 tabs 01/28/19 iron) tablet ibuprofen 600 mg tablet 600 mg PO Q6HR PRN As Needed For 01/28/19 Fever/Mild Pain #90 tabs oxycodone-acetaminophen 5 mg-325 2 tab PO Q4HR PRN Pain, Severe 01/28/19 mg tablet (7-10) #42 tabs Allergies Allergy/AdvReac Type Severity Reaction Status Date / Time aspirin Allergy Verified 11/27/18 09:15 ASPIRIN Allergy Unknown Uncoded 11/27/18 09:15 Review of Systems Review of Systems ROS Unobtainable: All systems reviewed & are unremarkable except as noted in HPI and below Patient History Medical History Gestational diabetes Social History Smoking Status: Never smoker Smoking Status: Never smoker Substance Use Type: does not use Exam Initial Vital Signs Initial Vital Signs: Vital Signs Temperature 98.3 F 12/18/22 18:32 Pulse Rate 79 12/18/22 18:32 Respiratory Rate 20 12/18/22 18:32 Blood Pressure 110/60 12/18/22 18:32 Pulse Oximetry 98 12/18/22 18:32 Oxygen Delivery Method Room Air 12/18/22 18:32 HENAL Head: normal to inspection and normocephalic Resp Effort & Inspection: normal respiratory effort Cardio Rate: regular rate GI Inspection: non-distended Skin General: no rashes or lesions noted Neuro General: patient alert, patient awake, patient oriented x3 and moves all extremities Speech: speech normal Extrem General: normal to inspection Course Orders Ordered: ED Orders 12/18/22 19:20 CMP [Comprehensive Metabolic Panel] Stat COVID19 -Nasal RAPID Stat Complete Blood Count AUTO DIFF Stat 12/18/22 19:23 EKG-12 Lead Stat Discontinued Medications Sodium Chloride (Normal Saline 0.9%) 1,000 mls @ 1,000 mls/hr IV BOLUS ONE Stop: 12/18/22 20:20 Last Infusion: 12/18/22 20:30 Dose: 0 mls/hr Documented By: Admin: 12/18/22 19:37 Dose: 1,000 mls/hr Documented By: YOLI Ondansetron HCl (Ondansetron 4 Mg Odt) 4 mg SL NOW PRN PRN Reason: Nausea And Vomiting Ondansetron HCl (Ondansetron 4 Mg/2 Ml Inj) 4 mg IV NOW PRN PRN Reason: Nausea And Vomiting Last Admin: 12/18/22 19:37 Dose: 4 mg Documented By: YOLI Ondansetron HCl (Ondansetron 4 Mg Odt Prepack) 1 bottle MISC SEEINSTR ONE Stop: 12/18/22 21:52 Last Admin: 12/18/22 22:02 Dose: 1 bottle Documented By: YOLI Vital Signs Vital signs: Vital Signs - 8 hr 12/18/22 22:03 Temperature 97.6 F Pulse Rate 78 Respiratory Rate 16 Blood Pressure 115/72 Pulse Oximetry 100 Oxygen Delivery Method Room Air Medical Decision Making Lab Data Lab results reviewed: Yes I reviewed the patient's lab results. 12/18/22 19:20 12/18/22 19:20 Labs: Lab Results 12/18/22 12/18/22 12/18/22 Range/Units 19:20 19:20 19:20 WBC 2.4 L (4.5-11.0) X10^3/uL RBC 4.46 (4.0-5.2) X10^6/uL Hgb 13.1 (12.0-16.0) g/dL Hct 39.4 (36-46) % MCV 88.3 (80-100) fL MCH 29.4 (26-34) PG MCHC 33.3 (30-36) % RDW 13.0 (11.6-14.8) % Plt Count 194 (150-400) X10^3/uL Neut % (Auto) 52.7 (50-75) % Lymph % (Auto) 28.9 (25-40) % [place] % (Auto) 13.5 (3-14) % Eos % (Auto) 4.3 H (2-4) % Baso % (Auto) 0.6 (0-2) % Neut # (Auto) 1300 L (7728-4159) /uL Lymph # (Auto) 700 L (5249-6008) /uL [place] # (Auto) 300 (0-900) /uL Eos # (Auto) 100 (0-450) /uL Baso # (Auto) 0 (0-100) /uL Sodium 136 L (137-145) mmol/L Potassium 4.8 (3.4-5.1) mmol/L Chloride 104 (98-107) mmol/L Carbon Dioxide 25 (22-32) mmol/L BUN 11 (7-17) mg/dL Creatinine 0.45 L (0.52-1.04) mg/dL Estimated GFR > 60 (>60) mL/min BUN/Creatinine Ratio 24.4 H (6-22) Glucose 112 H (70-100) mg/dL Calcium 7.9 L (8.4-10.2) mg/dL Total Bilirubin 0.3 (0.2-1.3) mg/dL AST 36 (14-36) IU/L ALT 26 (<35) IU/L Alkaline Phosphatase 27 L (38-126) U/L Total Protein 7.0 (6.3-8.2) g/dL Albumin 3.9 (3.5-5.0) g/dL Globulin 3.1 (1.7-4.1) g/dL Albumin/Globulin Ratio 1.3 (1.0-2.8) SARS-CoV-2 (PCR) Negative (Negative) Urine Dip Bedside Urine Glucose Negative Bedside Urine Bilirubin - Negative Bedside Urine Ketone - Negative Urine Specific [place] 1.015 Bedside Urine Occult Blood ++ Bedside Urine pH 6.0 Bedside Urine Protein - Negative Bedside Urine Urobilinogen - Negative Bedside Urine Nitrite - Negative Bedside Urine Leukocytes - Negative Esterase Point of care testing: Urine Dip Bedside Urine Glucose Negative Bedside Urine Bilirubin - Negative Bedside Urine Ketone - Negative Urine Specific [place] 1.015 Bedside Urine Occult Blood ++ Bedside Urine pH 6.0 Bedside Urine Protein - Negative Bedside Urine Urobilinogen - Negative Bedside Urine Nitrite - Negative Bedside Urine Leukocytes - Negative Esterase ECG Data Attestation: I personally reviewed and interpreted this ECG as follows: Interpretation: Sinus rhythm Ventricular rate is 70 Normal axis Normal QRS Normal QTC No ST T wave changes MDM Narrative Medical decision making narrative: A very high suspicion that the patient's symptoms today most likely related to the antibiotics she is been taking. She has completed the course of the antibiotics. Was sent home with a prescription for nausea medication. We did advise that she should stay hydrated. Potentially start taking some probiotics as this may help her symptoms as well. Vital signs are unremarkable. No indication for radiologic studies. Patient was given return precautions and follow-up instructions. She expressed understanding and agreement with plan. Discharge Plan Departure Patient Disposition: Home Clinical Impression: Headache, Abdominal pain, Dizziness Instructions: DI for Dizziness-Nonvertigo Activity Restrictions/Additional Instructions: I do recommend that you increase your fluid intake. I also recommend that you try to increase your diet as well. Use the nausea medication as needed. Keep all of your scheduled medical appointments and follow all of the instructions given to by the operative surgeon who did the carpal tunnel surgery. Return to the emergency department for worsening symptoms. Prescriptions: No Action oxycodone-acetaminophen 5-325 mg Tablet 2 tab PO Q4HR PRN (Reason: Pain, Severe (7-10)) Qty: 42 0RF ibuprofen 600 mg Tablet 600 mg PO Q6HR PRN (Reason: As Needed For Fever/Mild Pain) Qty: 90 0RF docusate sodium 250 mg Capsule 250 mg PO DAILY Qty: 60 1RF ferrous gluconate 324 mg (38 mg iron) Tablet 324 mg PO BID Qty: 100 1RF Referrals: Adali Demarco MD [Primary Care Provider] - Stand Alone Forms: Patient Portal/API, Work Release Note
[2022-12-18] MEDS: ONDANSETRON 4 MG ODT PREPACK 1 BOTTLE MISC (22:02)
[2022-12-18 22:03] VITALS: BP 115/72; PULSE 78; RESP 16; TEMP 36.4; O2SAT 100
== END 2022-12-18 22:04 | disposition home or self-care (01) ==
PROVIDERS: Emergency Provider Emergency Medicine; Family Provider Family Medicine; PCP Family Medicine
DX: R10.9 Unspecified abdominal pain (principal); R51.9 Headache, unspecified; R07.9 Chest pain, unspecified; R42 Dizziness and giddiness; Z20.822 Contact with and (suspected) exposure to COVID-19
CPT/HCPCS: 36415; 80053; 81003; 85025; 87635; 93005; 96374; 99284; C9803; J2405

== ENCOUNTER → 2023-07-02 16:42 | Outpatient (CLI) | payer OTHER, MEDICAID, SELFPAY ==
--- NOTE | 2023-07-02 16:43 | DI.MG.S_ITS ---
BILATERAL DIGITAL SCREENING MAMMOGRAM 3D/2D WITH CAD: 07/02/2023 CLINICAL: Routine screening. Family history of breast cancer. Comparison is made to exams dated: 06/29/2022 mammogram and 08/05/2020 mammogram - [facility]. Both breasts are heterogeneously dense, which may obscure small masses (category c / 51-75% glandular tissue). Current study was also evaluated with a Computer Aided Detection (CAD) system. No significant masses, calcifications, or other findings are seen in either breast. There has been no significant interval change. IMPRESSION: NEGATIVE There is no mammographic evidence of malignancy. A 1 year screening mammogram is recommended. Based on the Tyrer Cuzick model (a risk assessment model) the patient's lifetime risk is 7.7% and her 10 year risk is 1.4%. According to the ACR, ACS, and NCCN guidelines, an annual breast MRI exam along with mammogram is recommended if the patient's lifetime risk is 20% or greater. This exam was interpreted at Station ID: [id number]. NOTE: For mammograms, a report in lay terms will be sent to the patient. Approximately 15% of breast malignancies will not be visualized mammographically. In the management of a palpable breast mass, a negative mammogram must not discourage biopsy of a clinically suspicious lesion. Electronically Signed By: Melissa fisher/margo:07/03/2023 10:00:39 letter sent: Normal Exam ACR BI-RADS Category 1: Negative [id number]
== END ==
PROVIDERS: Family Provider Family Medicine; PCP Family Medicine; Referring Provider Family Medicine; Visit Provider Family Medicine
DX: Z12.31 Encounter for screening mammogram for malignant neoplasm of breast (principal); Z80.3 Family history of malignant neoplasm of breast
CPT/HCPCS: 77063; 77067